=== PATIENT | female | born 1965 | race Caucasian/White ===

== ENCOUNTER 2020-08-23 13:20 | Outpatient (CLI) | payer BC ==
[2020-08-23 13:52] LABS: BASOPHILS % (AUTO) 0.5 % (0-1); EOSINOPHILS % (AUTO) 0.6 % (0-6); HEMATOCRIT 41.5 % (35.0-45.0); HEMOGLOBIN 13.9 g/dl (12.0-16.0); LYMPHOCYTES # (AUTO) 1.2 X10'3 (1.1-4.8); LYMPHOCYTES % (AUTO) 22.1 % (21-51); MEAN CORPUSCULAR HEMOGLOBIN 32.8 PG (27.0-31.0); MEAN CORPUSCULAR HGB CONC 33.4 g/dL (33.0-36.5); MEAN CORPUSCULAR VOLUME 98.3 FL (78-98); MEAN PLATELET VOLUME 8.4 FL (7.4-10.4); MONOCYTES # (AUTO) 0.4 X10'3 (0-0.9); MONOCYTES % (AUTO) 7.7 % (2-12); NEUTROPHILS # (AUTO) 3.8 X10'3 (1.8-7.7); NEUTROPHILS % (AUTO) 69.1 % (42-75); PLATELET COUNT 231 X10'3 (140-440); RED BLOOD COUNT 4.23 X10'6 (4.20-5.60); RED CELL DISTRIBUTION WIDTH 14.7 % (11.5-14.5); WHITE BLOOD COUNT 5.4 X10'3 (4.5-11.0)
[2020-08-23 14:17] LABS: ALANINE AMINOTRANSFERASE 37 U/L (12-78); ALBUMIN 3.7 G/DL (3.4-5.0); ALKALINE PHOSPHATASE 97 IU/L (46-116); ANION GAP 13 (8-16); ASPARTATE AMINO TRANSFERASE 39 U/L (10-37); BILIRUBIN,TOTAL 0.5 MG/DL (0.1-1.0); BLOOD UREA NITROGEN 19 MG/DL (7-18); CALCIUM 9.2 MG/DL (8.5-10.1); CHLORIDE 105 MMOL/L (99-107); CREATININE 0.73 MG/DL (0.40-0.90); GLUCOSE 99 MG/DL (70-104); POTASSIUM 4.2 MMOL/L (3.5-5.1); SODIUM 143 MMOL/L (135-145); TOTAL CARBON DIOXIDE 24.8 MMOL/L (24-32); TOTAL PROTEIN 7.5 G/DL (6.4-8.2); TROPONIN I < 0.04 NG/ML (0.0-0.05); eGFR 83 ML/MIN
[2020-08-23 15:13] LABS: D-DIMER 3.75 MG/L FEU (0-0.50)
== END 2020-08-23 23:59 | disposition home or self-care (01) ==
LOC: LAB 13:20 → MERGE 13:20 → LAB 23:59
PROVIDERS: ATTEND Family Medicine
DX: I10 Essential (primary) hypertension (principal)
CPT/HCPCS: 36415; 80053; 84439; 84443; 84484; 85025; 85379; 85384

== ENCOUNTER 2022-03-25 00:56 | Inpatient (IN) | payer BC ==
[~2022-03-25] VITALS: Ht 162.6 cm; Wt 74.3 kg
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
[2022-03-25 03:08] LABS: URINE HCG NEGATIVE (NEG)
[2022-03-25] MEDS ORDERED: BENA20TA82 PO (03:11)
[2022-03-25] MEDS ORDERED: EST1T PO (03:11)
[2022-03-25] MEDS ORDERED: MELO-102 PO (03:11)
[2022-03-25] MEDS ORDERED: PROG200C11 PO (03:13)
[2022-03-25] MEDS ORDERED: DULO60CA59 PO (03:13)
[2022-03-25 03:17] LABS: BASOPHILS % (AUTO) 0.3 % (0-1); EOSINOPHILS # (AUTO) 0.1 X10'3 (0-0.9); MEAN PLATELET VOLUME 7.5 FL (7.4-10.4)
[2022-03-25 03:19] LABS: EOSINOPHILS % (AUTO) 0.7 % (0-6); HEMATOCRIT 43.5 % (35.0-45.0); HEMOGLOBIN 14.5 g/dl (12.0-16.0); LYMPHOCYTES # (AUTO) 2.6 X10'3 (1.1-4.8); LYMPHOCYTES % (AUTO) 27.9 % (21-51); MEAN CORPUSCULAR HEMOGLOBIN 33.7 PG (27.0-31.0); MEAN CORPUSCULAR HGB CONC 33.4 g/dL (33.0-36.5); MONOCYTES # (AUTO) 0.8 X10'3 (0-0.9); MONOCYTES % (AUTO) 9.1 % (2-12); NEUTROPHILS # (AUTO) 5.7 X10'3 (1.8-7.7); PLATELET COUNT 321 X10'3 (140-440); RED CELL DISTRIBUTION WIDTH 14.4 % (11.5-14.5); WHITE BLOOD COUNT 9.2 X10'3 (4.5-11.0)
[2022-03-25 03:25] LABS: URINE AMPHETAMINE SCREEN NEGATIVE (Neg); URINE BARBITUATE SCREEN NEGATIVE (Neg); URINE BENZODIAZEPINES SCREEN POSITIVE (Neg); URINE CANNABINOID SCREEN NEGATIVE (Neg); URINE COCAINE SCREEN NEGATIVE (Neg); URINE METHADONE SCREEN NEGATIVE (Neg); URINE OPIATE SCREEN NEGATIVE (Neg); URINE PHENCYCLIDINE SCREEN NEGATIVE (Neg)
[2022-03-25 03:29] LABS: ALANINE AMINOTRANSFERASE 59 U/L (12-78); ALBUMIN 3.8 G/DL (3.4-5.0); ALKALINE PHOSPHATASE 104 IU/L (46-116); ANION GAP 19 (8-16); ASPARTATE AMINO TRANSFERASE 99 U/L (10-37); BILIRUBIN,TOTAL 0.4 MG/DL (0.1-1.0); BLOOD UREA NITROGEN 14 MG/DL (7-18); BUN/CREATININE RATIO 21.5 (6.6-38.0); CALCIUM 8.8 MG/DL (8.5-10.1); CHLORIDE 101 MMOL/L (99-107); CREATININE 0.65 MG/DL (0.40-0.90); ETHANOL 0.148 GM/DL (0.0-0.010); GLUCOSE 101 MG/DL (70-104); POTASSIUM 3.4 MMOL/L (3.5-5.1); SODIUM 142 MMOL/L (135-145); TOTAL CARBON DIOXIDE 22.2 MMOL/L (24-32); TOTAL PROTEIN 7.6 G/DL (6.4-8.2); eGFR > 90 ML/MIN
[2022-03-25] MEDS ORDERED: acetaminophen 325mg tablet PO ONE ×2 (03:35→12:00)
[2022-03-25] MEDS ORDERED: TETanus/Pertussis (Acell)/Diphther VAC/PF (Tdap-Adult) 0.5ml syringe IMVAC ONE (03:35)
--- NOTE | 2022-03-25 05:13 | NUR ---
at the bedside to inject lidocaine to wound on right croft. Xrays complete. ABSORPTION AND ADSORPTION ENGINEER irrigating wound
[2022-03-25] MEDS ORDERED: ibuprofen 200mg tablet PO ONE (06:30)
--- NOTE | 2022-03-25 06:40 | NUR ---
PACKET SENT TO [facility]
[2022-03-25] MEDS: lisinopril 20mg tablet PO SCH (08:20)
[2022-03-25] MEDS: duloxetine 30mg CAPSULE.DR PO SCH (08:20)
[2022-03-25] MEDS: estradiol 1mg tablet PO SCH (08:22)
--- NOTE | 2022-03-25 09:56 | NUR ---
The patient to have the 5150 upheld by [facility] husbandry person. Spoke with charge hand [facility] regarding admitting the patient if possible when a bed is available
--- NOTE | 2022-03-25 10:51 | NUR ---
The patient is resting on her bed
--- NOTE | 2022-03-25 12:18 | NUR ---
The patient reports pain in her left wrist and Dr. Saldivar made aware and orders received. She has repeatedly asking for medications for withdrawals but no indication of withdrawal at this time.
--- NOTE | 2022-03-25 13:39 | NUR ---
The patient appears to be sleeping
--- NOTE | 2022-03-25 15:14 | NUR ---
The patient is resting on her bed
[2022-03-25] MEDS ORDERED: ibuprofen tablet 400 MG TABLET PO ONE (15:50)
--- NOTE | 2022-03-25 17:35 | NUR ---
The patient is resting quietly on her bed.
--- NOTE | 2022-03-25 18:41 | NUR ---
Assumed care of patient, dinner given pt ate 50% and denies any needs at this time. Will continue to monitor.
--- NOTE | 2022-03-25 19:40 | NUR ---
Pt assessment done and pt was reporting diaphoresis, tremors and anxiety. Last drink was last night and patient does have prior hx of withdrawal. Pts palms are sweaty, she does have a slight tremor, B/P 163/108 HR 102 T-97.1 temporal, R 18. Pt also c/o pain to R hand and requesting Tylenol or Motrin. Orders obtained from Dr. Mejia for Librium 50 mg po Q8 hr prn s/s of withdrawal and Motrin and Tylenol prn (alternate) for pain relief. Dressing to R lower extremity is CDI.
[2022-03-25] MEDS: ibuprofen tablet 400 MG TABLET PO PRN (19:53)
[2022-03-25] MEDS: chlordiazePOXIDE 25mg capsule PO PRN (19:53)
[2022-03-25] MEDS: progesterone, micronized 100mg capsule PO SCH (20:58)
--- NOTE | 2022-03-25 21:06 | NUR ---
Reassessed patient one hour after Librium administration, she says her anxiety is less, B/P 148/94 HR 82 R 18 T 97.8 temporal. Administred HS dose of progesterone, and pt given icepack to due c/o "burning pain" to croft area after she moved it. Pt denies S/I at this time, she states she was just under the influence. She is hoping to be able to be released in order to have her R shoulder surgery that is scheduled for Saturday. She does report having a significant drinking problem and may need rehab. Will continue to monitor patient and instructed her to let me know if she started to have any further s/s of withdrawal.
--- NOTE | 2022-03-25 23:11 | NUR ---
Pt sleeping at this time, breathing even and unlabored.
--- NOTE | 2022-03-26 01:00 | NUR ---
Pt continues to sleep, breathing even and unlabored.
--- NOTE | 2022-03-26 03:03 | NUR ---
Pt was up once to use the bathroom, then returned to sleep without problems.
[2022-03-26] MEDS: acetaminophen 325mg tablet PO PRN ×4 (03:23→18:40)
--- NOTE | 2022-03-26 05:26 | NUR ---
Pt continues to sleep, no signs of distress.
[2022-03-26] MEDS: ibuprofen tablet 400 MG TABLET PO PRN ×2 (05:44→18:42)
--- NOTE | 2022-03-26 06:31 | NUR ---
Patient sleeping supine. No distress observed. Continue to monitor.
[2022-03-26] MEDS: lisinopril 20mg tablet PO SCH (08:09)
[2022-03-26] MEDS: estradiol 1mg tablet PO SCH (08:09)
[2022-03-26] MEDS: duloxetine 30mg CAPSULE.DR PO SCH (08:09)
[2022-03-26] MEDS: chlordiazePOXIDE 25mg capsule PO PRN (08:11)
--- NOTE | 2022-03-26 08:22 | NUR ---
Patient's at bedside. Patient and speaking to Lester. Patient is tearful. Continue to monitor.
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
--- NOTE | 2022-03-26 11:25 | NUR ---
RN gave patient a 1/2 cheeseburger that the kitchen made and was in the fridge. Patient states it hit the spot. Continue to monitor.
[2022-03-26] MEDS ORDERED: ibuprofen tablet 400 MG TABLET PO PRN (12:00)
--- NOTE | 2022-03-26 12:32 | NUR ---
Patient sleeping. No distress observed. Continue to monitor.
[2022-03-26 13:24] VITALS: BP 147/89
[2022-03-26] MEDS ORDERED: loperamide 2mg capsule PO PRN (13:40)
[2022-03-26] MEDS ORDERED: acetaminophen 325mg tablet PO PRN ×2 (13:40)
[2022-03-26] MEDS ORDERED: magnesium hydroxide 30ml (MOM) UD suspension PO PRN (13:40)
[2022-03-26] MEDS ORDERED: mag hydrox/Alum hydrox/simeth 30ml oral suspension PO PRN (13:40)
[2022-03-26] MEDS ORDERED: FLUC200T93 PO (14:19)
[2022-03-26] MEDS ORDERED: MELO-102 PO (14:19)
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
[2022-03-26 19:12] VITALS: BP 115/81
[2022-03-26] MEDS ORDERED: LORazepam 1 MG tablet PO ONE (19:25)
[2022-03-26] MEDS: progesterone, micronized 100mg capsule PO SCH (20:17)
[2022-03-26] MEDS ORDERED: traZODone 50mg tablet PO SCH (21:00)
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
[2022-03-27] MEDS: acetaminophen 325mg tablet PO PRN (01:00)
[2022-03-27] MEDS: ibuprofen tablet 400 MG TABLET PO PRN (04:02)
[2022-03-27 04:26] VITALS: BP 113/79
[2022-03-27 07:28] LABS: HEMOGLOBIN A1C 5.5 % (4.5-6.2)
[2022-03-27 07:30] VITALS: BP 113/78
[2022-03-27 07:36] LABS: CHOL/HDL RATIO 1.6 (0.00-4.99); CHOLESTEROL 202 MG/DL (0-200); HDL CHOLESTEROL 130 MG/DL (35-60); LDL CHOLESTEROL 55 MG/DL (50-100); TRIGLYCERIDES 50 MG/DL (20-135)
[2022-03-27] MEDS ORDERED: non-formulary drug (Meloxicam 1 TAB) PO SCH (08:00)
[2022-03-27] MEDS: lisinopril 20mg tablet PO SCH (09:07)
[2022-03-27] MEDS: estradiol 1mg tablet PO SCH (09:07)
[2022-03-27] MEDS: duloxetine 30mg CAPSULE.DR PO SCH (09:08)
[2022-03-27] MEDS ORDERED: ibuprofen tablet 400 MG TABLET PO PRN (09:25)
[2022-03-27] MEDS ORDERED: ibuprofen 200mg tablet PO PRN (09:40)
[2022-03-27] MEDS ORDERED: traZODone 50mg tablet PO PRN (14:30)
[2022-03-27] MEDS ORDERED: HYDROcodone/acetaminophen 5mg/325mg tablet PO ONE (14:36)
[2022-03-27] MEDS ORDERED: LIDOcaine 5% patch TP ONE (14:39)
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
[2022-03-27] MEDS ORDERED: hydrOXYzine 25 MG tablet PO PRN ×2 (18:25)
[2022-03-27 19:18] VITALS: BP 118/86
[2022-03-27] MEDS: progesterone, micronized 100mg capsule PO SCH (20:03)
[2022-03-27] MEDS: ibuprofen tablet 400 MG TABLET PO SCH (20:03)
[2022-03-27] MEDS: traZODone 50mg tablet PO SCH (20:04)
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
[2022-03-27] MEDS: HYDROcodone/acetaminophen 5mg/325mg tablet PO SCH (23:58)
[2022-03-27] MEDS: acetaminophen 325mg tablet PO SCH (23:59)
[2022-03-28] MEDS: ibuprofen tablet 400 MG TABLET PO SCH ×3 (02:57→20:04)
[2022-03-28 07:38] VITALS: BP 99/61
[2022-03-28] MEDS: duloxetine 30mg CAPSULE.DR PO SCH (08:54)
[2022-03-28] MEDS: estradiol 1mg tablet PO SCH (08:54)
[2022-03-28] MEDS: HYDROcodone/acetaminophen 5mg/325mg tablet PO SCH ×2 (08:55→16:03)
[2022-03-28] MEDS: lisinopril 20mg tablet PO SCH (08:56)
[2022-03-28] MEDS: acetaminophen 325mg tablet PO SCH ×2 (08:56→16:03)
[2022-03-28] MEDS: LIDOcaine 5% patch TP SCH (09:33)
--- NOTE | 2022-03-28 11:03 | NUR ---
Met with patient in regards to alcohol use and to see if patient is interested in treatment options. Patient is interested in inpatient rehab and medication to help with cravings. Patient has private insurance so I explained to her that she needs to contact them to see who they are contracted with for inpatient rehab. I will talk to the Doctor about putting patient on medication.
[2022-03-28] MEDS ORDERED: naltrexone 50mg tablet PO ONE (13:40)
[2022-03-28] MEDS: docusate sod 100mg capsule PO SCH (13:45)
--- NOTE | 2022-03-28 17:19 | NUR ---
FAMILY MEETING @ [address] Noonan requested a meeting with client and her spouse Figueroa (cell [phone]). Purpose: to make sure spouse Figueroa and client Yue are on the same page regarding discharge. This underwriter contacted Figueroa, who stated his support and stated he will be here @ 1000.
[2022-03-28 20:00] VITALS: BP 114/82
[2022-03-28] MEDS: traZODone 50mg tablet PO SCH (20:04)
[2022-03-28] MEDS: progesterone, micronized 100mg capsule PO SCH (20:05)
[2022-03-28] MEDS ORDERED: HYDROcodone/acetaminophen 10/325mg tab PO ONE (20:25)
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
[2022-03-29] MEDS: ibuprofen tablet 400 MG TABLET PO SCH ×2 (03:04→12:05)
[2022-03-29 07:15] VITALS: BP 109/70
[2022-03-29] MEDS: docusate sod 100mg capsule PO SCH (07:59)
[2022-03-29] MEDS: duloxetine 30mg CAPSULE.DR PO SCH (07:59)
[2022-03-29] MEDS: acetaminophen 325mg tablet PO SCH ×2 (08:00)
[2022-03-29] MEDS ORDERED: naltrexone 50mg tablet PO SCH (08:00)
[2022-03-29] MEDS ORDERED: fluconazole 100mg tablet PO SCH (08:00)
[2022-03-29 08:01] VITALS: BP_SYST 70
[2022-03-29] MEDS: lisinopril 20mg tablet PO SCH (08:01)
[2022-03-29] MEDS: LIDOcaine 5% patch TP SCH (08:03)
[2022-03-29] MEDS: estradiol 1mg tablet PO SCH (08:05)
[2022-03-29] MEDS ORDERED: HYDROcodone/acetaminophen 7.5MG/325MG per 15ml UD CUP PO SCH (08:33)
--- NOTE | 2022-03-29 12:14 | NUR ---
DISCHARGE PLANNING, GUN SAFETY Spoke by phone to patient's spouse, Figueroa by phone: He stated his firearms are in a gun safe, and patient will not have access.
[2022-03-29] MEDS ORDERED: LIDO700A47 TP (13:20)
[2022-03-29] MEDS ORDERED: HYDR15SO7 PO ×2 (13:20)
[2022-03-29] MEDS ORDERED: MIRT-92 PO (13:20)
[2022-03-29] MEDS ORDERED: NALT50TA PO (13:20)
[2022-03-29] MEDS ORDERED: DISU250T14 PO (13:20)
[2022-03-29] MEDS ORDERED: HYDR50TA65 PO (13:20)
--- NOTE | 2022-03-29 13:50 | NUR ---
Patient discharged home with . She had all her belongings in hand. Patient was accompanied off the unit by
--- NOTE | 2022-03-29 14:32 | NUR ---
Met with patient, her and Dr Noonan and came up with a plan for patient to go to outpatient rehab at [facility]. Patient was placed on medication to help her with cravings. Patient will be getting a sponsor. Patient and have appt with counselor. Patient has my card to call me if she has any questions.
[2022-03-29] MEDS ORDERED: HYDR-3972 PO (18:14)
[2022-03-30] MEDS ORDERED: HYDR-3972 PO (12:02)
== END 2022-03-29 13:45 | disposition home or self-care (01) | DRG 563 ==
LOC: ER 00:56 → ADULT MH 03-26 09:30
PROVIDERS: ADMIT Psychiatry & Neurology Psychiatry; ATTEND Psychiatry & Neurology Psychiatry
PROC: 0HQKXZZ Repair Right Lower Leg Skin, External Approach (ICD-10-PCS; principal; 2022-03-25)
PROC: 2W3BX1Z Immobilization of Left Upper Arm using Splint (ICD-10-PCS; 2022-03-25)
DX: S52.502A Unspecified fracture of the lower end of left radius, initial encounter for closed fracture (principal); F33.2 Major depressive disorder, recurrent severe without psychotic features; R45.851 Suicidal ideations; F10.120 Alcohol abuse with intoxication, uncomplicated; Z20.822 Contact with and (suspected) exposure to COVID-19; F41.9 Anxiety disorder, unspecified; S81.811A Laceration without foreign body, right lower leg, initial encounter; W18.39XA Other fall on same level, initial encounter; I10 Essential (primary) hypertension; R45.850 Homicidal ideations; R56.9 Unspecified convulsions; Z79.899 Other long term (current) drug therapy; Z82.49 Family history of ischemic heart disease and other diseases of the circulatory system; Z91.410 Personal history of adult physical and sexual abuse; Z98.84 Bariatric surgery status; Y93.89 Activity, other specified; Y92.89 Other specified places as the place of occurrence of the external cause; Y99.8 Other external cause status
CPT/HCPCS: 36415; 71045; 71100; 73110; 73590; 80053; 80061; 80305; 80320; 81025; 83036; 83090; 84443; 85025; 87081; 87811; 90471; 90715; 99285; A4565; A6223; A6258; A6446; A6449; C2617; Q0177

== ENCOUNTER 2023-10-24 13:06 | Inpatient (IN) | payer BC ==
[~2023-10-24] VITALS: Ht 162.6 cm; Wt 66.0 kg
[~2023-10-24 13:06] MED LIST: BENA20TA82 PO; DISU250T15 PO; DULO60CA59 PO; EST1T PO; FLUC200T93 PO; HYDR-3972 PO; HYDR50TA65 PO; LIDO700A47 TP; MELO-102 PO; MIRT-92 PO; NALT50TA PO; PROG200C11 PO
[2023-10-24] MEDS ORDERED: TRAZ-251 PO (14:07)
[2023-10-24] MEDS ORDERED: TIRZ5PEN (14:07)
[2023-10-24] MEDS: LORazepam 2 mg/ml vial IV PRN ×2 (14:58→19:25)
[2023-10-24 17:19] LABS: BILIRUBIN,URINE NEGATIVE (Neg); CLARITY,URINE SLIGHTLY CLOUDY (Clear); COLOR,URINE YELLOW (Yellow); GLUCOSE, URINE NEGATIVE (Neg); KETONES,URINE NEGATIVE (Neg); LEUKOCYTE ESTERASE ,URINE NEGATIVE (Neg); NITRITES, URINE NEGATIVE (Neg); OCCULT BLOOD,URINE NEGATIVE (Neg); PROTEIN,URINE TRACE mg/dl (Neg); UROBILINOGEN,URINE 0.2 E.U/dL (0.2-1.0)
[2023-10-24 17:24] LABS: UA COLLECTION TYPE CLN CATCH MIDSTREAM
[2023-10-24 17:25] LABS: MUCUS STRANDS FEW /LPF (Neg); SQUAMOUS EPITHELIAL CELL,UR MODERATE /LPF (FEW)
[2023-10-24 17:26] LABS: BACTERIA,URINE FEW /HPF (Neg); RBC,URINE 0-2 /HPF (0-2); TRANSITIONAL EPI CELLS,URINE FEW /HPF; WBC,URINE 0-4 /HPF (0-4)
[2023-10-24 17:33] LABS: BASOPHILS % (AUTO) 0.3 % (0-1); EOSINOPHILS # (AUTO) 0.1 X10'3 (0-0.9); EOSINOPHILS % (AUTO) 1.1 % (0-6); HEMATOCRIT 42.5 % (35.0-45.0); HEMOGLOBIN 14.3 g/dl (12.0-16.0); LYMPHOCYTES # (AUTO) 1.6 X10'3 (1.1-4.8); LYMPHOCYTES % (AUTO) 29.6 % (21-51); MEAN CORPUSCULAR HEMOGLOBIN 33.5 PG (27.0-31.0); MEAN CORPUSCULAR HGB CONC 33.6 g/dL (33.0-36.5); MEAN CORPUSCULAR VOLUME 99.9 FL (78-98); MONOCYTES # (AUTO) 0.4 X10'3 (0-0.9); MONOCYTES % (AUTO) 7.1 % (2-12); NEUTROPHILS # (AUTO) 3.4 X10'3 (1.8-7.7); NEUTROPHILS % (AUTO) 61.9 % (42-75); PLATELET COUNT 195 X10'3 (140-440); RED BLOOD COUNT 4.25 X10'6 (4.20-5.60); RED CELL DISTRIBUTION WIDTH 13.8 % (11.5-14.5); WHITE BLOOD COUNT 5.5 X10'3 (4.5-11.0)
[2023-10-24 17:37] LABS: URINE AMPHETAMINE SCREEN NEGATIVE (Neg); URINE BARBITUATE SCREEN NEGATIVE (Neg); URINE BENZODIAZEPINES SCREEN NEGATIVE (Neg); URINE CANNABINOID SCREEN NEGATIVE (Neg); URINE COCAINE SCREEN NEGATIVE (Neg); URINE METHADONE SCREEN NEGATIVE (Neg); URINE OPIATE SCREEN NEGATIVE (Neg); URINE PHENCYCLIDINE SCREEN NEGATIVE (Neg)
[2023-10-24 17:56] LABS: ALANINE AMINOTRANSFERASE 30 U/L (12-78); ALBUMIN 3.2 G/DL (3.4-5.0); ALBUMIN/GLOBULIN RATIO 0.9 (1.1-1.5); ALKALINE PHOSPHATASE 109 IU/L (46-116); ANION GAP 14 (8-16); ASPARTATE AMINO TRANSFERASE 32 U/L (10-37); BILIRUBIN,TOTAL 0.3 MG/DL (0.1-1.0); BLOOD UREA NITROGEN 15 MG/DL (7-18); BUN/CREATININE RATIO 20.8 (10.0-20.0); CALCIUM 8.8 MG/DL (8.5-10.1); CHLORIDE 104 MMOL/L (99-107); CREATININE 0.72 MG/DL (0.40-0.90); ETHANOL 88 MG/DL (<10); GLUCOSE 139 MG/DL (70-104); LIPASE 43 U/L (16-77); MAGNESIUM 1.9 MG/DL (1.5-2.4); PHOSPHORUS 3.6 MG/DL (2.3-4.5); POTASSIUM 4.1 MMOL/L (3.5-5.1); SALICYLATE 0.7 MG/DL (4.0-20.0); SODIUM 137 MMOL/L (135-145); TOTAL CARBON DIOXIDE 19.4 MMOL/L (24-32); TOTAL PROTEIN 6.9 G/DL (6.4-8.2); eCRCL 74 ML/MIN; eGFR 83 ML/MIN
[2023-10-24 18:09] LABS: ACETAMINOPHEN < 2.0 UG/ML (10-30)
[2023-10-24] MEDS ORDERED: LORazepam 2 mg/ml vial IV PRN (20:35)
[2023-10-24] MEDS ORDERED: magnesium hydroxide 30ml (MOM) UD suspension PO PRN (20:35)
[2023-10-24] MEDS ORDERED: acetaminophen 325mg tablet PO PRN ×2 (20:35)
[2023-10-24] MEDS ORDERED: magnesium Cl slow-release 64mg tablet PO PRN (20:35)
[2023-10-24] MEDS ORDERED: haloperidol lactate 5mg/ml inj IM PRN (20:35)
[2023-10-24] MEDS ORDERED: magnesium 4gm in 100ml NS 100 ML IV PRN (20:35)
[2023-10-24] MEDS ORDERED: potassium Cl 20 mEq SR tablet PO PRN ×2 (20:35)
[2023-10-24] MEDS ORDERED: haloperidol 5mg tablet PO PRN (20:35)
[2023-10-24] MEDS ORDERED: magnesium 2GM in 50ml NS 50 ML IV PRN (20:35)
[2023-10-24] MEDS ORDERED: dextrose 50%-water 50ml dispensing syringe IV PRN (20:35)
[2023-10-24] MEDS ORDERED: potassium Cl 40MEQ/1/2NS 520ml 520 ML IV PRN (20:35)
[2023-10-24] MEDS ORDERED: mag hydrox/Alum hydrox/simeth 30ml oral suspension PO PRN (20:35)
[2023-10-24] MEDS ORDERED: HYDROcodone/acetaminophen 5mg/325mg tablet PO PRN (20:35)
[2023-10-24] MEDS ORDERED: ondansetron/PF 4mg/2ml inj IV PRN (20:35)
[2023-10-24] MEDS: thiamine 100mg/ml 2ml inj. IV SCH (21:33)
[2023-10-24] MEDS: folic acid 1mg/0.2ml inj IV SCH (21:39)
[2023-10-24 22:00] VITALS: BP 145/102; PULSE 97; RESP 14; RESP 16; TEMP 98.9; O2SAT 94; O2SAT 99
[2023-10-24] MEDS: HYDROcodone/acetaminophen 10/325mg tab PO PRN (22:46)
[2023-10-25 06:41] VITALS: BP 128/83; PULSE 80; RESP 16; TEMP 98; O2SAT 98
[2023-10-25 07:41] LABS: BASOPHILS % (AUTO) 0.3 % (0-1); EOSINOPHILS # (AUTO) 0.1 X10'3 (0-0.9); EOSINOPHILS % (AUTO) 3.1 % (0-6); HEMATOCRIT 41.3 % (35.0-45.0); HEMOGLOBIN 13.7 g/dl (12.0-16.0); LYMPHOCYTES # (AUTO) 1.6 X10'3 (1.1-4.8); LYMPHOCYTES % (AUTO) 36.8 % (21-51); MEAN CORPUSCULAR HEMOGLOBIN 33.2 PG (27.0-31.0); MEAN CORPUSCULAR HGB CONC 33.2 g/dL (33.0-36.5); MEAN CORPUSCULAR VOLUME 100.1 FL (78-98); MONOCYTES # (AUTO) 0.5 X10'3 (0-0.9); MONOCYTES % (AUTO) 12.1 % (2-12); NEUTROPHILS # (AUTO) 2.1 X10'3 (1.8-7.7); NEUTROPHILS % (AUTO) 47.7 % (42-75); PLATELET COUNT 197 X10'3 (140-440); RED BLOOD COUNT 4.12 X10'6 (4.20-5.60); RED CELL DISTRIBUTION WIDTH 13.8 % (11.5-14.5); WHITE BLOOD COUNT 4.3 X10'3 (4.5-11.0)
[2023-10-25 07:45] LABS: APTT 25 SECONDS (22-32); PROTHROMBIN TIME 9.9 SECONDS (9.0-12.0)
[2023-10-25 07:48] LABS: HEMOGLOBIN A1C 5.2 % (4.5-6.2); INR 0.9 INR
[2023-10-25 07:50] LABS: ALANINE AMINOTRANSFERASE 30 U/L (12-78); ALBUMIN 3.1 G/DL (3.4-5.0); ALBUMIN/GLOBULIN RATIO 0.8 (1.1-1.5); ALKALINE PHOSPHATASE 105 IU/L (46-116); AMYLASE 61 U/L (25-115); ANION GAP 11 (8-16); ASPARTATE AMINO TRANSFERASE 37 U/L (10-37); BILIRUBIN,TOTAL 0.6 MG/DL (0.1-1.0); BLOOD UREA NITROGEN 15 MG/DL (7-18); BUN/CREATININE RATIO 23.1 (10.0-20.0); CALCIUM 8.4 MG/DL (8.5-10.1); CHLORIDE 104 MMOL/L (99-107); CREATININE 0.65 MG/DL (0.40-0.90); GLUCOSE 83 MG/DL (70-104); LIPASE 40 U/L (16-77); MAGNESIUM 1.8 MG/DL (1.5-2.4); PHOSPHORUS 3.9 MG/DL (2.3-4.5); POTASSIUM 3.5 MMOL/L (3.5-5.1); SODIUM 140 MMOL/L (135-145); TOTAL CARBON DIOXIDE 24.8 MMOL/L (24-32); TOTAL PROTEIN 6.8 G/DL (6.4-8.2); eCRCL 82 ML/MIN; eGFR > 90 ML/MIN
[2023-10-25] MEDS: multivitamins, therapeutics tablet PO SCH (07:57)
[2023-10-25] MEDS: duloxetine 30mg CAPSULE.DR PO SCH (07:57)
[2023-10-25] MEDS: lisinopril 20mg tablet PO SCH (07:58)
[2023-10-25] MEDS: estradiol 1mg tablet PO SCH (07:59)
[2023-10-25] MEDS: docusate sod 100mg capsule PO SCH (08:00)
[2023-10-25] MEDS: K and/or MAG REPLACEMENT MC SCH (08:00)
[2023-10-25 08:30] VITALS: RESP 16; O2SAT 95
[2023-10-25 18:00] VITALS: BP 117/82; PULSE 81; RESP 18; TEMP 98.2; O2SAT 99
[2023-10-25 20:00] VITALS: RESP 18; O2SAT 99
[2023-10-25] MEDS: progesterone, micronized 100mg capsule PO SCH (20:55)
[2023-10-25] MEDS: LORazepam 1 MG tablet PO PRN (20:56)
[2023-10-25] MEDS: enoxaparin 40mg/0.4ml syringe SQ SCH (21:04)
[2023-10-25 22:00] VITALS: BP 120/72; PULSE 82; RESP 18; TEMP 97.9; O2SAT 97
[2023-10-26 06:31] VITALS: BP 139/94; PULSE 82; RESP 16; TEMP 97.4; O2SAT 97
[2023-10-26 07:29] LABS: APTT 27 SECONDS (22-32); PROTHROMBIN TIME 9.9 SECONDS (9.0-12.0)
[2023-10-26 07:35] LABS: INR 0.9 INR
[2023-10-26 07:44] LABS: ALANINE AMINOTRANSFERASE 26 U/L (12-78); ALBUMIN 3.2 G/DL (3.4-5.0); ALBUMIN/GLOBULIN RATIO 0.8 (1.1-1.5); ALKALINE PHOSPHATASE 99 IU/L (46-116); AMYLASE 63 U/L (25-115); ANION GAP 7 (8-16); ASPARTATE AMINO TRANSFERASE 19 U/L (10-37); BILIRUBIN,TOTAL 0.6 MG/DL (0.1-1.0); BLOOD UREA NITROGEN 10 MG/DL (7-18); BUN/CREATININE RATIO 15.9 (10.0-20.0); CALCIUM 8.6 MG/DL (8.5-10.1); CHLORIDE 105 MMOL/L (99-107); CREATININE 0.63 MG/DL (0.40-0.90); GLUCOSE 88 MG/DL (70-104); LIPASE 42 U/L (16-77); MAGNESIUM 1.7 MG/DL (1.5-2.4); PHOSPHORUS 3.6 MG/DL (2.3-4.5); POTASSIUM 3.4 MMOL/L (3.5-5.1); SODIUM 140 MMOL/L (135-145); eCRCL 85 ML/MIN; eGFR > 90 ML/MIN
[2023-10-26 08:20] VITALS: RESP 16; O2SAT 96
[2023-10-26 08:43] VITALS: BP_SYST 139; PULSE 82
[2023-10-26 09:55] LABS: BASOPHILS % (AUTO) 0.2 % (0-1); EOSINOPHILS # (AUTO) 0.1 X10'3 (0-0.9); EOSINOPHILS % (AUTO) 3.3 % (0-6); HEMATOCRIT 39.8 % (35.0-45.0); HEMOGLOBIN 13.2 g/dl (12.0-16.0); LYMPHOCYTES % (AUTO) 27.3 % (21-51); MEAN CORPUSCULAR HEMOGLOBIN 33.3 PG (27.0-31.0); MEAN CORPUSCULAR HGB CONC 33.1 g/dL (33.0-36.5); MEAN CORPUSCULAR VOLUME 100.5 FL (78-98); MEAN PLATELET VOLUME 8.5 FL (7.4-10.4); MONOCYTES # (AUTO) 0.4 X10'3 (0-0.9); MONOCYTES % (AUTO) 11.9 % (2-12); NEUTROPHILS # (AUTO) 2.1 X10'3 (1.8-7.7); NEUTROPHILS % (AUTO) 57.3 % (42-75); PLATELET COUNT 178 X10'3 (140-440); RED BLOOD COUNT 3.96 X10'6 (4.20-5.60); WHITE BLOOD COUNT 3.6 X10'3 (4.5-11.0)
[2023-10-26] MEDS ORDERED: thiamine tablet PO (11:40)
[2023-10-26] MEDS ORDERED: FOLI1TAB27 PO (11:40)
[2023-10-26] MEDS ORDERED: MULT-25 PO (11:40)
[2023-10-26 14:02] VITALS: RESP 16
[2023-10-28] MEDS ORDERED: thiamine 100mg tablet PO SCH (08:00)
[2023-10-29] MEDS ORDERED: folic acid 1mg tablet PO SCH (08:00)
== END 2023-10-26 14:30 | disposition home or self-care (01) | DRG 897 ==
LOC: ER 13:06 → ED HOLD 20:35 → ORTHO 4S 22:00
PROVIDERS: ADMIT Student in an Organized Health Care Education/Training Program; ATTEND Internal Medicine
DX: F10.239 Alcohol dependence with withdrawal, unspecified (principal); F10.229 Alcohol dependence with intoxication, unspecified; F32.A Depression, unspecified; I10 Essential (primary) hypertension; F41.9 Anxiety disorder, unspecified; E11.9 Type 2 diabetes mellitus without complications; Z79.899 Other long term (current) drug therapy; Z90.710 Acquired absence of both cervix and uterus
CPT/HCPCS: 36415; 80053; 80305; 80320; 80329; 81001; 82150; 82948; 83036; 83690; 83735; 84100; 85025; 85610; 85730; 87081; 96374; 97116; 97161; 99291; G0378; J1650; J2060; J3411; J3490